=== PATIENT | female | born 1960 | race Caucasian/White ===

== ENCOUNTER → 2017-03-21 | Outpatient (CLI) | payer MEDICAID ==
[~2017-03-21] MED LIST: DICL50TA4 PO; MULT1TAB60 PO; TYLENOL PM PO
[2017-03-21 14:29] LABS: ASPARTATE AMINO TRANSFERASE 92 U/L (15-37); BLOOD UREA NITROGEN 19 mg/dL (7-18)
== END | disposition home or self-care (01) ==
LOC: STAR 13:04
PROVIDERS: ATTEND Neurological Surgery
DX: Z01.818 Encounter for other preprocedural examination (principal); M48.06 Spinal stenosis, lumbar region; S33.140A Subluxation of L4/L5 lumbar vertebra, initial encounter; M41.86 Other forms of scoliosis, lumbar region; M43.07 Spondylolysis, lumbosacral region; X58.XXXA Exposure to other specified factors, initial encounter; Y93.89 Activity, other specified; Y92.89 Other specified places as the place of occurrence of the external cause; Y99.8 Other external cause status; R79.1 Abnormal coagulation profile
CPT/HCPCS: 36415; 71020; 72110; 80053; 85025; 85610; 85730; 87077; 87086; 93005

== ENCOUNTER 2017-03-31 09:30 | Inpatient (IN) | payer MEDICAID ==
[2017-03-21 13:31] VITALS: BP 176/69
[~2017-03-31] VITALS: Ht 167.6 cm; Wt 62.0 kg
[2017-04-06] MEDS ORDERED: BUPIVACAINE/PF-EPI 0.5% 1:200K ONE (06:51)
[2017-04-06] MEDS ORDERED: THROMBIN 5,000 UNIT VIAL TP ONE (06:51)
[2017-04-06] MEDS ORDERED: BACITRACIN 50,000 UNIT ONE (06:52)
[2017-04-06] MEDS ORDERED: LACTATED RINGERS 1,000 ML IV SCH (07:08)
[2017-04-06] MEDS ORDERED: MIDAZOLAM 1 MG/ML, 2ML ONE (07:54)
[2017-04-06] MEDS ORDERED: FENTANYL PF 250 MCG/5ML ONE (07:54)
[2017-04-06] MEDS ORDERED: ROCURONIUM 10 MG/ML ONE (08:28)
[2017-04-06] MEDS ORDERED: NEOSTIGMINE 1 MG/ML, 10ML ONE (08:28)
[2017-04-06] MEDS ORDERED: DEXAMETHASONE 4 MG/ML, 1ML ONE (08:28)
[2017-04-06] MEDS ORDERED: ONDANSETRON 2MG/ML, 2ML ONE (08:28)
[2017-04-06] MEDS ORDERED: CEFAZOLIN 1,000 MG ONE (08:28)
[2017-04-06] MEDS ORDERED: PHENYLEPHRINE 10 MG/ML ONE (08:28)
[2017-04-06] MEDS ORDERED: GLYCOPYRROLATE 0.2MG/1ML ONE (08:28)
[2017-04-06] MEDS ORDERED: PROPOFOL 10 MG/ML, 20ML ONE (08:28)
[2017-04-06] MEDS ORDERED: SUCCINYLCHOLINE 20 MG/ML, 10ML ONE (08:28)
[2017-04-06] MEDS ORDERED: hydrALAzine 20 MG/ML, 1ML IV PRN (09:00)
[2017-04-06] MEDS ORDERED: MIDAZOLAM 1 MG/ML, 2ML IV PRN (09:00)
[2017-04-06] MEDS ORDERED: METOCLOPRAMIDE 5 MG/ML, 2ML IV PRN (09:00)
[2017-04-06] MEDS ORDERED: ACETAMINOPHEN 325 MG TABLET PO PRN (09:00)
[2017-04-06] MEDS ORDERED: ONDANSETRON 2MG/ML, 2ML IVPush PRN ×2 (09:00→12:30)
[2017-04-06] MEDS ORDERED: MEPERIDINE/PF 25MG/0.5ML IVPush PRN (09:00)
[2017-04-06] MEDS ORDERED: LABETALOL 5MG/ML, 20ML IV PRN (09:00)
[2017-04-06] MEDS ORDERED: OXYcodone 5 MG/5 ML ORAL.SOL UDC PO PRN (09:00)
[2017-04-06] MEDS ORDERED: PROMETHAZINE 25 MG/ML, 1ML IV PRN (09:00)
[2017-04-06] MEDS ORDERED: VANCOMYCIN 1,000 MG ONE (10:46)
[2017-04-06] MEDS ORDERED: FENTANYL PF 100 MCG/2ML ONE ×2 (11:34→12:00)
[2017-04-06] MEDS ORDERED: OXYcodone 5 MG/5 ML ORAL.SOL UDC ONE (11:34)
[2017-04-06] MEDS ORDERED: ACETAMINOPHEN 650 MG/20.3 ML UDC ONE (11:34)
[2017-04-06] MEDS ORDERED: HYDROmorphone 1 MG/ML, 1ML ONE ×2 (11:34→12:00)
[2017-04-06] MEDS: HYDROmorphone 1 MG/ML, 1ML IV PRN ×4 (11:38→12:11)
[2017-04-06] MEDS: FENTANYL PF 100 MCG/2ML IV PRN ×4 (11:44→12:23)
[2017-04-06] MEDS ORDERED: LABETALOL 5MG/ML, 20ML IVPush PRN (12:30)
[2017-04-06] MEDS ORDERED: OXYcodone/APAP 5/325MG TABLET PO PRN (12:30)
[2017-04-06] MEDS ORDERED: HYDROcodone/APAP 5/325 TABLET PO PRN (12:30)
[2017-04-06] MEDS ORDERED: morphine SULFATE 10 MG/ML, 1ML IVPush PRN (12:30)
[2017-04-06] MEDS ORDERED: HYDROmorphone 2MG TABLET PO PRN (12:30)
[2017-04-06] MEDS ORDERED: DIPHENHYDRAMINE 50 MG/ML, 1ML IM PRN (12:30)
[2017-04-06] MEDS ORDERED: SENNA/DOCUSATE TABLET PO PRN (12:30)
[2017-04-06] MEDS ORDERED: PHARMACY MAY ADJ FOR RENAL FX MC PRN (12:30)
[2017-04-06] MEDS ORDERED: MAGNESIUM HYDROXIDE 8%, 30ML UDC PO PRN (12:30)
[2017-04-06] MEDS ORDERED: PROMETHAZINE 25 MG/ML, 1ML IM PRN (12:30)
[2017-04-06] MEDS ORDERED: BISACODYL 10 MG SUPP PR PRN (12:30)
[2017-04-06] MEDS ORDERED: DIAZEPAM 5 MG/ML, 2ML ONE (12:41)
[2017-04-06] MEDS: DIAZEPAM 5 MG TABLET PO PRN (12:43)
[2017-04-06 14:00] VITALS: BP 118/64
[2017-04-06] MEDS ORDERED: DIPHENHYDRAMINE 25 MG CAPSULE PO PRN (14:00)
[2017-04-06] MEDS ORDERED: ACETAMINOPHEN 500 MG TABLET PO PRN (14:00)
[2017-04-06] MEDS ORDERED: DIPHENHYDRAMINE 50 MG CAPSULE PO PRN (14:00)
[2017-04-06] MEDS: NS + 20MEQ KCL 1,000 ML IV SCH (14:10)
[2017-04-06] MEDS: CEFAZOLIN PMX 1GM/50ML 50 ML IVPB SCH (16:22)
[2017-04-06 19:55] VITALS: BP 108/69
[2017-04-07 00:23] VITALS: BP 113/67
[2017-04-07] MEDS: CEFAZOLIN PMX 1GM/50ML 50 ML IVPB SCH (00:33)
[2017-04-07 03:01] VITALS: BP 120/70
[2017-04-07] MEDS: NS + 20MEQ KCL 1,000 ML IV SCH ×2 (03:32→13:57)
[2017-04-07 06:36] VITALS: BP 116/64
[2017-04-07 06:53] LABS: BLOOD UREA NITROGEN 12 mg/dL (7-18)
[2017-04-07] MEDS: OXYcodone/APAP 5/325MG TABLET PO PRN ×3 (08:35→23:18)
[2017-04-07] MEDS: SENNA/DOCUSATE TABLET PO SCH (08:35)
[2017-04-07] MEDS: MULTIVITAMIN 1 TABLET PO SCH (08:35)
[2017-04-07 13:44] VITALS: BP 117/65
[2017-04-07] MEDS: DIAZEPAM 5 MG TABLET PO PRN (20:11)
[2017-04-07 20:36] VITALS: BP 96/46
[2017-04-08 01:18] VITALS: BP 107/58
[2017-04-08] MEDS ORDERED: SODIUM CHLORIDE 0.9% 1,000 ML IV ONE (02:30)
[2017-04-08] MEDS ORDERED: ACETAMINOPHEN 325 MG TABLET PO PRN (02:30)
[2017-04-08] MEDS: morphine SULFATE 10 MG/ML, 1ML IVPush PRN ×2 (02:40→03:29)
[2017-04-08] MEDS: HYDROmorphone 2MG TABLET PO PRN ×2 (04:53→09:26)
[2017-04-08 05:06] LABS: PATH.CAST-FLAG NOT PRESENT; SPERM-FLAG NOT PRESENT; SRC-FLAG NOT PRESENT; XTAL-FLAG NOT PRESENT; YLC-FLAG NOT PRESENT
[2017-04-08 05:17] LABS: BLOOD UREA NITROGEN 9 mg/dL (7-18)
[2017-04-08 07:13] VITALS: BP 148/76
[2017-04-08] MEDS: DIAZEPAM 5 MG TABLET PO PRN (07:37)
[2017-04-08] MEDS: SENNA/DOCUSATE TABLET PO SCH (09:23)
[2017-04-08] MEDS: MULTIVITAMIN 1 TABLET PO SCH (09:23)
[2017-04-08] MEDS: NS + 20MEQ KCL 1,000 ML IV SCH (09:30)
[2017-04-08] MEDS ORDERED: OXYcodone IR 5MG TABLET PO PRN (10:00)
[2017-04-08 10:51] VITALS: BP 144/72
[2017-04-08] MEDS ORDERED: OXYC10TA6 PO (13:46)
[2017-04-08] MEDS ORDERED: ACET325T26 PO (13:47)
[2017-04-08] MEDS ORDERED: METH750T87 PO (13:49)
== END 2017-04-08 14:20 | disposition home health service (06) | DRG 460 ==
LOC: ORIP 04-06 06:26 → 4NOR 04-06 13:30 → DCLOUNGE 04-08 13:35
PROVIDERS: ADMIT Neurological Surgery; ATTEND Neurological Surgery
PROC: 0SB20ZZ Excision of Lumbar Vertebral Disc, Open Approach (ICD-10-PCS; 2017-04-06)
PROC: 01NB0ZZ Release Lumbar Nerve, Open Approach (ICD-10-PCS; 2017-04-06)
PROC: 0SG0071 Fusion of Lumbar Vertebral Joint with Autologous Tissue Substitute, Posterior Approach, Posterior Column, Open Approach (ICD-10-PCS; 2017-04-06)
PROC: 0SG00AJ Fusion of Lumbar Vertebral Joint with Interbody Fusion Device, Posterior Approach, Anterior Column, Open Approach (ICD-10-PCS; principal; 2017-04-06 08:45)
DX: M48.06 Spinal stenosis, lumbar region (principal); M43.16 Spondylolisthesis, lumbar region; M54.16 Radiculopathy, lumbar region; F17.210 Nicotine dependence, cigarettes, uncomplicated
CPT/HCPCS: 36415; 72100; 80048; 81001; 85025; 87086; C1713; C1776; J0690; J1100; J1170; J2250; J2270; J2405; J2704; J2710; J3010; J3370; J3480; J3490; C1762; J0330; J2370; J7030; J7120

== ENCOUNTER 2020-04-11 13:21 | Emergency (ER) | payer MEDICAID ==
[~2020-04-11] VITALS: Ht 165.1 cm; Wt 56.4 kg
[~2020-04-11 13:21] MED LIST changes: +ACET325T14 PO; +ACET325T26 PO; +CYCL-259 PO; +DOCU-131 PO; +GABA600T7 PO; +HYDR-3240 PO; +MELO15TA24 PO; +METH750T87 PO; +NICO-485 TD; +OXYC10TA6 PO; +TRAZ-175 PO; +Tylenol PM PO
[2020-04-11 14:06] VITALS: BP 203/99
--- NOTE | 2020-04-11 14:56 | NUR ---
TO [facility] FROM LOBBY
--- NOTE | 2020-04-11 15:06 | NUR ---
PT GOING TO XRAY
--- NOTE | 2020-04-11 15:39 | NUR ---
ALL RESULTS ARE BACK AT THIS TIME. CHART UP FOR RECHECK.
--- NOTE | 2020-04-11 16:25 | NUR ---
TECH AT BEDSIDE FOR SPLINT
== END 2020-04-11 17:01 | disposition home or self-care (01) ==
LOC: ED 16:55
DX: S52.502A Unspecified fracture of the lower end of left radius, initial encounter for closed fracture (principal); W01.0XXA Fall on same level from slipping, tripping and stumbling without subsequent striking against object, initial encounter; Y93.89 Activity, other specified; Y92.098 Other place in other non-institutional residence as the place of occurrence of the external cause; Y99.8 Other external cause status
CPT/HCPCS: 29125; 99284

== ENCOUNTER 2021-02-28 09:13 | Emergency (ER) | payer MEDICAID ==
[~2021-02-28] VITALS: Ht 165.1 cm; Wt 54.7 kg
[~2021-02-28 09:13] MED LIST changes: -CYCL-259 PO; +CYCL10TA2 PO; +HYDR-2214 PO; -HYDR-3240 PO; +MULT-449 PO; -MULT1TAB60 PO
--- NOTE | 2021-02-28 09:59 | NUR ---
"MY RIBS HURT AND I'M HAVING A HARD TIME BREATHING" "PAIN IN THE CENTER OF MY BACK" SINCE LAST NIGHT. PT ATTACHED TO ALL MONITORS. VSS. PT MOANING IN PAIN STATING "8 OF 10 PAIN IN MY RIBS, I CAN'T CATCH MY BREATH IT HURTS TOO MUCH" AWAITING ORDERS.
--- NOTE | 2021-02-28 10:16 | NUR ---
DR. WATERS TO BEDSIDE FOR EVALUATION.
[2021-02-28] MEDS ORDERED: KETOROLAC 30 MG/1 ML IVPush ONE (10:30)
[2021-02-28] MEDS ORDERED: SODIUM CHLORIDE FLUSH 10ML SYR IVF ONE (10:30)
[2021-02-28] MEDS ORDERED: HYDROmorphone 1 MG/ML, 1ML INJ IV PRN (10:30)
[2021-02-28] MEDS ORDERED: KETOROLAC 30 MG/1 ML ONE (10:42)
[2021-02-28] MEDS ORDERED: HYDROmorphone 1 MG/ML, 1ML INJ ONE (10:42)
[2021-02-28 10:49] LABS: BASOPHILS % (AUTO) 1 % (0-1); EOSINOPHILS % (AUTO) 3 % (1-7); LYMPHOCYTES % (AUTO) 21 % (22-44); MEAN CORPUSCULAR HEMOGLOBIN 33.6 pg (27.0-34.8); MEAN CORPUSCULAR HGB CONC 34.4 g/dL (32.4-35.8); MEAN PLATELET VOLUME 6.6 fL (7.4-10.4); MONOCYTES % (AUTO) 10 % (2-9); NEUTROPHILS % (AUTO) 65 % (42-75); PLATELET COUNT 298 x10^3/uL (130-400); RED BLOOD COUNT 4.03 x10^6/uL (3.82-5.3); RED CELL DISTRIBUTION WIDTH 13.6 % (9.6-15.2)
--- NOTE | 2021-02-28 10:49 | NUR ---
PT MEDICATED PER EMAR. VSS. [facility].
--- NOTE | 2021-02-28 10:53 | NUR ---
BEDSIDE REPORT GIVEN TO SANIYA RN AND GAYATRI RN.
[2021-02-28 10:58] LABS: ALANINE AMINOTRANSFERASE 133 U/L (12-78); ALBUMIN 3.8 g/dL (3.4-5.0); ANION GAP 4 mmol/L (5-15); CALCIUM 8.9 mg/dL (8.5-10.1); CHLORIDE 105 mmol/L (98-107); CREATININE 0.63 mg/dL (0.55-1.02)
[2021-02-28 11:03] LABS: ALKALINE PHOSPHATASE 99 U/L (45-117); BILIRUBIN,TOTAL 0.5 mg/dL (0.2-1.0); TOTAL PROTEIN 7.7 g/dL (6.4-8.2); TROPONIN I < 0.015 ng/mL (0.000-0.045)
--- NOTE | 2021-02-28 11:23 | NUR ---
PT RESTING IN BED. STATING MEDICATION IS HELPING. VSS. AWAITING CTA. ATTACHED TO CARDIAC. SP02/BP MONITORS. BREATHING EVEN AND UNLABORED. CALL LIGHT WITHIN REACH. WILL CONTINUE TO MONITOR.
[2021-02-28 11:46] LABS: MICROSCOPIC AUTO
--- NOTE | 2021-02-28 12:06 | NUR ---
PT HEADING BACK TO ROOM FROM IMAGNG.
[2021-02-28] MEDS ORDERED: OMNIPAQUE 350 MG/ML, 75ML BOTTLE ONE (12:08)
[2021-02-28] MEDS ORDERED: CEFTRIAXONE 1,000 MG in DEXTROSE 5% 50 ML IVPB ONE (12:30)
--- NOTE | 2021-02-28 13:36 | NUR ---
PT AMUBLATED TO BATHROOM
[2021-02-28 13:58] VITALS: BP 144/61
== END 2021-02-28 14:00 | disposition home or self-care (01) ==
LOC: ED 10:23
DX: N39.0 Urinary tract infection, site not specified (principal); M54.6 Pain in thoracic spine; R94.31 Abnormal electrocardiogram [ECG] [EKG]; I10 Essential (primary) hypertension; G89.29 Other chronic pain
CPT/HCPCS: 36415; 71275; 80053; 81001; 83605; 84484; 85025; 87086; 93005; 96365; 96375; 99285; J0696; J1170; J1885; Q9967